=== PATIENT | male | born 1950 | race African-American/Black ===

== ENCOUNTER 2024-06-15 13:20 | Emergency (ER) | payer OTHER ==
[2024-06-15] MEDS ORDERED: Nitroglycerin 2% Ointment 1 INCH/1 GM Packet ONE (13:39)
[2024-06-15 14:20] LABS: ALT (SGPT) 17 U/L (8-55); AST (SGOT) 16 U/L (5-34); Albumin 3.9 g/dL (3.4-4.8); Alkaline Phosphatase 78 U/L (40-110); Anion Gap 12 mmol/L (10-20); BUN (Urea Nitrogen) 13 mg/dL (8.4-25.7); Bilirubin, Total 0.8 mg/dL (0.2-1.2); Calc. Creatinine Clearance 0 mL/min (70-130); Calcium 9.7 mg/dL (7.8-10.44); Carbon Dioxide 25 mmol/L (23-31); Chloride 111 mmol/L (98-107); Estimated GFR 58; Globulin 1.8 g/dL (2.4-3.5); Glucose 157 mg/dL (83-110); Potassium 4.4 mmol/L (3.5-5.1); Protein, Total 5.7 g/dL (5.8-8.1); Sodium 144 mmol/L (136-145)
[2024-06-15 14:25] LABS: Troponin I Less than 0.010 ng/mL (< 0.028)
[2024-06-15 14:27] LABS: #Basophils 0.01 10x3/uL (0.0-0.2); #Eosinophils 0.33 10x3/uL (0.0-0.5); #Monocytes 0.65 10x3/uL (0.0-1.1); #Neutrophils 3.46 10x3/uL (1.5-8.4); %Basophils 0.1 % (0.0-2.0); %Eosinophils 4.7 % (0.0-6.0); %Lymphocytes 35.8 % (18.0-47.0); %Monocytes 9.3 % (0.0-10.0); %Neutrophils 49.8 % (40.0-75.0); Hematocrit 27.8 % (38.8-50.0); Hemoglobin 8.7 g/dL (13.5-17.5); Mean Corpuscular HGB CONC 31.3 g/dL (32.0-36.0); Mean Corpuscular Hemoglobin 28.5 pg (27.0-33.0); Mean Corpuscular Volume 91.1 fL (81.2-95.1); Mean Platelet Volume 8.7 fL (7.4-10.4); Platelet Count 103 10x3/uL (150-450); RBC Distribution Width 18.6 % (11.5-14.5); Red Blood Cell (RBC) Count 3.05 10x6/uL (4.32-5.72)
[2024-06-15 15:04] LABS: Platelet Adequacy Comment Appears Decreased
[2024-06-15 19:40] LABS: Troponin I Less than 0.010 ng/mL (< 0.028)
== END 2024-06-15 20:22 ==
LOC: EEVIPCON 13:20 → CSHERS 13:20
DX: R07.9 Chest pain, unspecified (principal); I10 Essential (primary) hypertension; E11.9 Type 2 diabetes mellitus without complications; K21.9 Gastro-esophageal reflux disease without esophagitis; Z86.73 Personal history of transient ischemic attack (TIA), and cerebral infarction without residual deficits; Z79.84 Long term (current) use of oral hypoglycemic drugs; Z79.82 Long term (current) use of aspirin; Z79.899 Other long term (current) drug therapy
CPT/HCPCS: 36415; 36416; 71045; 80053; 84484; 85025; 93005

== ENCOUNTER 2025-05-01 14:14 | Emergency (ER) | payer OTHER ==
[2025-05-01 15:12] LABS: ALT (SGPT) 18 U/L (Less than 45); AST (SGOT) 24 U/L (11-34); Albumin 3.7 g/dL (3.1-4.5); Alkaline Phosphatase 106 U/L (40-110); Anion Gap 11 mmol/L (10-20); BUN (Urea Nitrogen) 13 mg/dL (8.4-25.7); Bilirubin, Total 0.9 mg/dL (0.3-1.2); Calc. Creatinine Clearance 0 mL/min (70-130); Calcium 9.2 mg/dL (7.8-10.44); Carbon Dioxide 25 mmol/L (23-31); Chloride 110 mmol/L (98-107); Globulin 2.0 g/dL (2.4-3.5); Glucose 73 mg/dL (83-110); Lipase 23 U/L (8-78); Potassium 4.1 mmol/L (3.5-5.1); Sodium 142 mmol/L (136-145)
[2025-05-01 15:13] LABS: Hematocrit 26.4 % (38.8-50.0); Hemoglobin 8.3 g/dL (13.5-17.5); Mean Corpuscular Hemoglobin 29.6 pg (27.0-33.0); Mean Corpuscular Volume 94.3 fL (81.2-95.1); Platelet Count 81 10x3/uL (150-450); Red Blood Cell (RBC) Count 2.80 10x6/uL (4.32-5.72); White Blood Cell (WBC) Count 10.24 10x3/uL (3.5-10.5)
[2025-05-01 15:17] LABS: Troponin I Less than 0.010 ng/mL (< 0.028)
[2025-05-01 15:42] LABS: Anisocytosis SLIGHT = 6-15 cells (100X) (0-5/hpf)
[2025-05-01 16:46] LABS: MDiff Complete? YES
[2025-05-01 16:50] LABS: Platelet Adequacy Comment Appears Decreased
[2025-05-01 18:25] LABS: Troponin I Less than 0.010 ng/mL (< 0.028)
== END 2025-05-01 20:24 ==
LOC: CSHERS 14:14
DX: R07.9 Chest pain, unspecified (principal); I25.10 Atherosclerotic heart disease of native coronary artery without angina pectoris; E11.22 Type 2 diabetes mellitus with diabetic chronic kidney disease; I12.9 Hypertensive chronic kidney disease with stage 1 through stage 4 chronic kidney disease, or unspecified chronic kidney disease; N18.9 Chronic kidney disease, unspecified; Z86.73 Personal history of transient ischemic attack (TIA), and cerebral infarction without residual deficits
CPT/HCPCS: 36415; 71045; 80053; 83690; 83880; 84484; 85025; 93005; 94760